=== PATIENT | female | born 1960 | race Caucasian/White ===

== ENCOUNTER 2016-05-16 07:28 | Inpatient (IN) | payer MEDICARE, BC ==
[2016-05-12 15:11] LABS: BASOPHILS 1.1 % (0.0-2.0); EOSINOPHILS 1.1 % (0-7); HEMATOCRIT 41.2 % (36.0-48.0); HEMOGLOBIN 13.1 g/dL (12-16); IMMATURE GRANULOCYTES 0.1 % (0-5); LYMPHOCYTES 24.9 % (15-50); MCH 28.4 pg (26.0-34.0); MCHC 31.8 g/dL (31.0-37.0); MCV 89.2 fL (80.0-100.0); MEAN PLATELET VOLUME 8.8 fL (7.4-10.4); MONOCYTES 4.4 % (2-11); NEUTROPHILS 68.4 % (40-80); PLATELET COUNT 296 10x3/uL (130-400); RBC 4.62 10x6/uL (4.00-5.40); RDW 17.1 % (11.5-14.5)
[2016-05-12 15:18] LABS: CALC OSMOLALITY 275 mosm/kg (275-300); CALCIUM 9.5 mg/dL (8.5-10.1); CARBON DIOXIDE 26.5 mmol/L (21.0-32.0); CHLORIDE - SERUM 104 mmol/L (98-107); CREATININE - SERUM 0.7 mg/dL (0.6-1.3); GLUCOSE 86 mg/dL (74-106); POTASSIUM - SERUM 4.6 mmol/L (3.5-5.1); SODIUM 139 mmol/L (136-145); UREA NITROGEN 11 mg/dL (7-18); eGFR NON AFRICAN AMERICAN > 90 mL/min (90-120)
[2016-05-12 15:36] LABS: APPEARANCE CLEAR (CLEAR); BILIRUBIN NEGATIVE (NEGATIVE); COLOR YELLOW (YELLOW); GLUCOSE NEGATIVE (NEGATIVE); KETONE NEGATIVE (NEGATIVE); LEUKOCYTE ESTERASE TRACE (NEGATIVE); NITRITE NEGATIVE (NEGATIVE); PROTEIN NEGATIVE (NEGATIVE); SPECIFIC GRAVITY 1.015 (1.005-1.020); UROBILINOGEN NORMAL (NORMAL)
[2016-05-12 15:43] LABS: BACTERIA FEW /hpf (NONE SEEN); EPITHELIAL CELLS NSEEN /hpf (0-5); RED CELLS - URINE 0-5 /hpf (0-5); WHITE CELLS - URINE 0-5 /hpf (0-5)
[~2016-05-16] VITALS: Ht 160 cm; Wt 52.3 kg
[2016-05-16] VITALS (12 sets, daily range): BP systolic 115–161; BP diastolic 70–92; Ht 160 cm; Wt 52.3 kg
[~2016-05-16 07:28] MED LIST: BAYER ASPIRIN325 MG PO; CALTRATE 600 M600 M1 PO; COZAAR50 MG PO; EFFEXOR XR75 MG PO; LIPITOR40 MG PO; MAG-OXIDE400 MG PO; NATROL 5-HTP50 MG PO; NEURONTIN 300300 MG PO; NITROSTAT0.4 MG SL; PERCOCET 10/3251 TA1 PO; PLAVIX75 MG PO; REQUIP0.25 MG PO; REQUIP0.5 MG PO; ROBAXIN-750750 MG PO; TENORMIN50 MG PO; TYLENOL #4 W/CO1 TAB PO; VITAMIN B-1000 MCG/M IM; VITAMIN D31000 UNIT PO; ZANTAC150 MG PO; ZANTAC300 MG PO; ZOFRAN8 MG PO
[2016-05-16] MEDS ORDERED: PERCOCET 10/3251 TA1 PO (09:29)
--- NOTE | 2016-05-16 12:01 | HP ---
PATIENT: CASSANDRA URIAS MEDICAL RECORD: [id number] ACCOUNT: [id number] LOCATION:[facility]- : 64 ADMISSION DATE: 05/16/16 HISTORY AND PHYSICAL EXAMINATION CHIEF COMPLAINT: Back pain. HISTORY OF PRESENT ILLNESS: This is very nice thin lady had a L3-L4 left micro disc on 08/18/2015. She had good results and then had a return of pain, which she has tried lumbar epidural steroid injections, modification of activity and meds with no help. She is not overweight. She is of normal weight. Pain radiates down into the tailbone and left leg. She has a history of scoliosis with DDD at L3-L4 with nerve root compression. At this point, she wishes to proceed with surgery. She is neurovascularly intact. Rates her pain 10/10, has difficulty walking. PAST MEDICAL HISTORY: Significant for gastro motility disorder, fibromyalgia, coronary artery disease, which she is on Plavix; myocardial infarction, scoliosis, depression, grand mal seizures, autoimmune disorder, high cholesterol, sciatica in her left hip and osteoporosis. PAST SURGICAL HISTORY: Tubal hysterectomy, lumpectomy, cholecystectomy, appendectomy, colectomy, bunionectomy and cardiac stent and the previous lumbar surgery. MEDICATIONS: Include gabapentin, Plavix, aspirin, Robinul, nitroglycerin, magnesium, Zofran, losartan, atenolol, methocarbamol and Tylenol No.3. ALLERGIES: NUBAIN. REVIEW OF SYSTEMS: She denies any recent chest pain, shortness of breath or any cardiac symptoms. PHYSICAL EXAMINATION: GENERAL: This is an alert, oriented female, who is in a fair amount of distress. HEENT: Normocephalic. Pupils are equal, reactive to light. CHEST: Clear bilaterally to auscultation. HEART: S1 and S2. ABDOMEN: Soft, bowel sounds present. EXTREMITIES: She has pain in her left leg with a limp. BACK: She has decreased range of motion of her lumbar spine. IMPRESSION: Scoliosis with severe degenerative disc disease L3-L4 with nerve root compression on the left. PLAN: An L3-L4 PLIF from the right. The risk and benefits of surgery have been explained to her in detail. Risks include bleeding, failure to relieve symptoms, problems with anesthesia and . Time was allowed for questions, questions were answered. The patient wishes to proceed with surgery. TRANSINT:[id number] Voice Confirmation ID: [id number] DOCUMENT ID: [id number] Dictated By: SOFÍA KOCH HISTORY AND PHYSICAL [id number] CASSANDRA URIAS I have interviewed/examined the above patient and agree with these documented findings. JORGE CERON MD at 1203 at 1201 CC: [id number] DICTATION DATE: 05/13/16 1212 TOP AND SEAT COVER FITTER: 05/13/16 1245 ADM IN [facility] [address] [id number]
--- NOTE | 2016-05-16 15:15 | NUR ---
ASSESSMENT PER FLOW SHEET.PT WITHOUT DISTRESS.PAIN CONTROLLED.ORIENTATION TO ROOM WITH PT AND FAMILY.DRESSING TO MID BACK CDI.MONITOR FOR NEEDS.CALL LIGHT IN REACH
--- NOTE | 2016-05-16 16:31 | NUR ---
FAMILY AT BEDSIDE.PT REMAINS WITHOUT DISTRESS.MONITOR
--- NOTE | 2016-05-16 17:30 | NUR ---
ASSIST UP TO CHAIR.PT WITHOUT DISTRESS.
--- NOTE | 2016-05-16 17:35 | NUR ---
PAIN MEDS ORDERED PER MAR
--- NOTE | 2016-05-16 18:28 | NUR ---
REMAINS UP IN CHAIR. AT BEDSIDE.STILL HAVING SOME BACK PAIN.CONT PLAN OF CARE
[2016-05-17] VITALS: BP 122/63
[2016-05-17 04:00] VITALS: BP 124/64
--- NOTE | 2016-05-17 04:29 | NUR ---
REC'D IN BED EYES CLOSED RESP. DEEP AND EVEN. TRUONG DRAINING CL. STRAW YELLOW URINE.WILL CONTINUE TO MONITOR FOR ANY CHGS.AND FOLLOW CURRENT PLAN OF CARE.
--- NOTE | 2016-05-17 06:04 | NUR ---
PATIENT RESTING IN BED AND DENIES NEEDS AT THIS TIME. BED IN LOWEST POSITION AND CALL LIGHT WITHIN REACH.
--- NOTE | 2016-05-17 09:08 | NUR ---
SPOKE WITH SOFÍA KOCH NOTIFIED HER OF PATIENT'S NAUSEA, SEE ORDERS. NOFITIED HER THAT PATIENT'S INCISION SITE IS VERY SWOLLEN SHE SAID TO HAVE THE PATIENT LAY WITH A PILLOW BEHIND HER BACK, ON HER BACK TO APPLY PRESSURE.
--- NOTE | 2016-05-17 09:19 | NUR ---
patient laying with a pillow behind her to back to apply pressure to incision site. explained to patient the purpuse. patient verbalized understanding and agreed.
[2016-05-17 10:13] VITALS: BP 144/78
[2016-05-17 11:38] VITALS: BP 148/61
--- NOTE | 2016-05-17 15:22 | NUR ---
Patient Name: CASSANDRA URIAS Admission Status: Elective Accout number: [id number] Admission Date: 05-16-2016 : 1960 Admission Diagnosis: Attending: GUERRERO Current LOS: 1 Anticipated DC Date: 05-20-2016 Planned Disposition: Home or Self Care Primary Insurance: MEDICARE A & B Discharge Planning Comments: CM MET WITH PATIENT REGARDING D/C NEEDS AND PLANS. PATIENT STATED SHE LIVES WITH HER SPOUSE (MAILE) AND HE WILL DRIVE HER HOME AT DISCHARGE. PATIENT STATED SHE HAS 3 STEPS W/O RAILS TO ENTER HOME AND NO STAIRS INSIDE. PATIENTS PCP IS DR. MARIZOL HAWKINS AND PHARMACY IS [facility] IN [place]. PATIENT STATED SHE IS INDEPENDENT WITH HER CARE AND HAS NO DME AT HOME. PATIENT DENIES THE NEEDS FOR HOME HEALTH. PATIENT STATED HER SISTER IS AN OT AND LIVES NEXT DOOR TO HER AND WILL HELP HER IF NEEDED. PCP IS DR. MARIZOL HAWKINS [facility] IN [place]- [phone] MAILE (SPOUSE) [phone] Client Relations Associate: Kath Barnett Is the patient Alert and Oriented? Yes 0 * How many steps to enter\exit or inside your home? 1 W/O RAIL 0 * PCP DR. MARIZOL HAWKINS 0 * Pharmacy [facility] [place] 0 * Preadmission Environment Home with Family 0 * ADLs Independent 0 * Equipment None 0 * List name and contact numbers for known caregivers / representatives who currently or will assist patient after discharge: MAILE (SPOUSE) [phone] 0 * Community resources currently utilized None 0 * Additional services required to return to the preadmission environment? Yes 0 * Can the patient safely return to the preadmission environment? Yes 0 * Has this patient been hospitalized within the prior 30 days at any hospital? No 0 Grand Total: 0
[2016-05-17 17:07] VITALS: BP 149/72
--- NOTE | 2016-05-17 19:50 | NUR ---
ASSESSMENT COMPLETED, NO ACUTE DISTRESS NOTED, REQUEST AMBIEN WITH NIGHT MEDS, DENIES NEEDS AT THIS TIME, FAMILY AT BEDSIDE, SR'S UP X2, CL IN REACH, WILL MONITOR
[2016-05-17 21:24] VITALS: BP 125/66
--- NOTE | 2016-05-17 21:28 | NUR ---
prn ambien given for sleep per request along with scheduled colace, javier well, cl in reach
--- NOTE | 2016-05-17 23:30 | NUR ---
RESTING WITH EYES CLOSED, RESP WITH EASE, NO DISTRESS NOTED, SR'S UP X2, CL IN REACH
[2016-05-18 00:24] VITALS: BP 121/63
--- NOTE | 2016-05-18 00:36 | NUR ---
DECADRON GIVEN PER MAR, DAWN WELL, DENIES NEEDS, CL IN REACH
--- NOTE | 2016-05-18 04:56 | NUR ---
PRN MORPHINE GIVEN FOR C/O BACK PAIN 10/10, DAWN WELL, CL IN REACH
[2016-05-18 05:33] VITALS: BP 136/76
[2016-05-18 07:44] VITALS: BP 108/72
[2016-05-18 12:05] VITALS: BP 109/65
[2016-05-18] MEDS ORDERED: ROBAXIN-750750 MG PO (12:05)
[2016-05-18] MEDS ORDERED: OXYCODONE HCL5 MG PO (12:07)
--- NOTE | 2016-05-18 14:00 | NUR ---
DISCHARGE INSTRUCTIONS COMPLETED WITH PATIENT. PATIENT VERBALIZED UNDERSTANDING AND DENIES QUESTIONS. D/C IV WITH CATH INTACT.
--- NOTE | 2016-05-18 14:19 | NUR ---
CM REASSESSMENT NOTE- PATIENT IS DISCHARGING HOME TODAY WITH NO NEEDS. DENIED HOME HEALTH.
--- NOTE | 2016-06-13 10:57 | OP ---
PATIENT NAME: CASSANDRA URIAS MEDICAL RECORD: [id number] :64 LOCATION:[id number] ADMISSION DATE:05/16/16 SURGEON: JORGE COBURN MD DATE OF OPERATION: 05/16/2016 DIAGNOSES: L3-L4 degenerative disc disease with nerve root compression and spinal instability. PROCEDURE: 1. L3-L4 radical discectomy. 2. L3-L4 transforaminal interbody fusion. 3. L3-L4 hemilaminectomy and facetectomy. 4. Pedicle fixation at L3-L4 on the right. 5. Radiologic localization in the operating room. SURGEON: Jorge Coburn MD SUMMARY: The patient was taken to the operating room and after an adequate level of general anesthetic, was prepped and draped in the usual aseptic manner on foam rolls. After localizing the L3-L4 spinous processes with the C-arm fluoroscope, an incision was made approximately a centimeter and a half to the right of the midline. Using a 10 blade after infiltrating with 1:400,000 epinephrine and 0.5% lidocaine. ____ dissection was carried out down to the interlaminar space medial to the facet joints and the facet joint was removed with an Adson rongeur and Cloward and Kerrison punches exposing the ligamentum flavum. Further enlargement of the laminotomy with the Kerrison and Cloward punch on the L3 and L4 lamina widening the opening, the ligamentum flavum was then removed exposing the exiting nerve root and the annulus of the L3-L4 disc. Following this, an osteotome was used to remove osteophytes from the L3-L4 disc and then the disc space was entered with a pituitary. Disc space scrapers supplied by the [employer] were then used to scrape out the interspace. Curettes were used as well to be sure that the interspace was cleared of all disc material. Following this, a trial was used to determine that a 9 mm cage would best fit the interspace. Following this, a 9 mm Tritanium cage was then packed with bone harvested from the laminectomy and facetectomy. It was then inserted in the interspace anteriorly and medially and was tightly inserted. The C-arm fluoroscope was used to manage all of this placement. When this had been completed, a Jamshidi needle was then used to cannulate the pedicles of L3 and L4 using the C-arm fluoroscope in a biplane confirmation and the K-wires were then inserted through the cannula of the Jamshidi needle into the pedicles of L3 and L4 on the right side. Following this, a 5.5 x 45 mm ES2 screws were then screwed into the vertebral bodies by hand. When these appeared to be in good position on the C-arm fluoroscopic images, a 40-mm chel was attached using MIS technique. Cap screws were placed on the rods and given a final tightening with the instrumentation provided. The wound was then irrigated with an antibiotic solution and a closure carried out in layers with 2-0 and 3-0 Dexon and skin nathan on the skin. The patient tolerated the procedure well and was taken to recovery in stable condition. TRANSINT:[id number] Voice Confirmation ID: [id number] DOCUMENT ID: [id number] OPERATIVE REPORT [id number] CASSANDRA URIAS, JORGE STALLIGNS at 1057 CC: [id number] DICTATION DATE: 05/19/16 07 [employer]: 05/19/16 0805 DIS IN 05/18/16 [facility] [address] [place] [address]
== END 2016-05-18 14:30 | disposition home or self-care (01) | DRG 460 ==
LOC: D.SDCHOLD 07:28 → D.MS 07:28 → D.SDCHOLD 10:30 → D.MS 14:03
PROVIDERS: ADMIT Neurological Surgery
PROC: 0ST20ZZ Resection of Lumbar Vertebral Disc, Open Approach (ICD-10-PCS; 2016-05-16)
PROC: 0SG00A1 (ICD-10-PCS; principal; 2016-05-16 10:30)
DX: M51.36 Other intervertebral disc degeneration, lumbar region (principal); M41.9 Scoliosis, unspecified; M79.7 Fibromyalgia; I25.10 Atherosclerotic heart disease of native coronary artery without angina pectoris; I25.2 Old myocardial infarction; I10 Essential (primary) hypertension; M25.78 Osteophyte, vertebrae

== ENCOUNTER → 2016-06-10 08:48 | Outpatient (CLI) | payer MEDICARE, BC ==
[2016-05-16 15:28] VITALS: BMI 20.4
[~2016-06-10 08:48] MED LIST changes: +OXYCODONE HCL5 MG PO
== END | disposition home or self-care (01) ==
LOC: D.RAD 08:48
DX: M51.36 Other intervertebral disc degeneration, lumbar region (principal); Z98.1 Arthrodesis status